=== PATIENT | male | born 2000 | race Caucasian/White ===

== ENCOUNTER 2021-11-19 16:29 | Emergency (ER) | payer SELFPAY | END 2021-11-19 19:00 | disposition home or self-care (01) | LOC: JD.ED 16:29 | DX: B34.9 Viral infection, unspecified (principal); Z72.0 Tobacco use; Z20.822 Contact with and (suspected) exposure to COVID-19 | CPT/HCPCS: 71045; 71045-26; 99283; 99283-25; U0002 ==

== ENCOUNTER 2022-06-03 07:38 | Emergency (ER) | payer SELFPAY | END 2022-06-03 10:28 | disposition home or self-care (01) | LOC: JD.ED 07:38 | DX: I86.1 Scrotal varices (principal); F17.210 Nicotine dependence, cigarettes, uncomplicated | CPT/HCPCS: 76870; 76870-26; 81003; 93975; 99283; 99284 ==

== ENCOUNTER 2025-04-05 20:38 | Emergency (ER) | payer BC ==
[2025-04-05] MEDS: Ketorolac 60 MG/2 ML SDV IM ONE (21:20)
== END 2025-04-05 22:00 | disposition home or self-care (01) ==
LOC: JD.ED 20:38
DX: M25.512 Pain in left shoulder (principal)
CPT/HCPCS: 73030-26-LT; 73030-LT; 96372; 99283; J1885

== ENCOUNTER 2025-09-24 03:29 | Emergency (ER) | payer OTHER, BC | END 2025-09-24 04:30 | disposition home or self-care (01) | LOC: JD.ED 03:29 | DX: S90.121A Contusion of right lesser toe(s) without damage to nail, initial encounter (principal); F17.200 Nicotine dependence, unspecified, uncomplicated; W24.0XXA Contact with lifting devices, not elsewhere classified, initial encounter | CPT/HCPCS: 73630-26-RT; 73630-RT; 99282; 99283 ==